=== PATIENT | female | born 1970 | race Caucasian/White ===

== ENCOUNTER 2016-08-25 13:39 | Inpatient (IN) | payer BC ==
[~2016-08-25] VITALS: Ht 167.6 cm; Wt 60.0 kg
[2016-08-25 14:48] LABS: MCHC 34.3 g/dL (31.0-37.0); MCV 90.4 fL (80.0-100.0); MEAN PLATELET VOLUME 9.3 fL (7.4-10.4); PLATELET COUNT 294 10x3/uL (130-400); RBC 3.87 10x6/uL (4.00-5.40); RDW 14.7 % (11.5-14.5); WBC 27.2 10x3/uL (4.8-10.8)
[2016-08-25 14:57] LABS: ALBUMIN 2.8 g/dL (3.4-5.0); ANION GAP 11.6 mmol/L (8-16); BILIRUBIN - TOTAL 0.18 mg/dL (0.2-1.3); CALCIUM 9.3 mg/dL (8.5-10.1); CARBON DIOXIDE 28.8 mmol/L (21.0-32.0); CREATININE - SERUM 1.5 mg/dL (0.6-1.3); POTASSIUM - SERUM 3.4 mmol/L (3.5-5.1); PROTEIN - SERUM 7.8 g/dL (6.4-8.2)
[2016-08-25 15:07] LABS: LYMPHOCYTES 7 % (15-50); NEUTROPHILS 84 % (40-80); PLATELET ESTIMATE INCREASED
[2016-08-25 17:49] LABS: HCG SERUM NEGATIVE (NEGATIVE)
[2016-08-25] MEDS ORDERED: SYNTHROID125 MCG (18:52)
[2016-08-25] MEDS ORDERED: HYDROCODON-ACE1 EAC9 PO (18:52)
[2016-08-25] MEDS ORDERED: PERIDEX480 ML MM (18:53)
[2016-08-25] MEDS ORDERED: CYCLOBENZAPRINE10 MG PO (18:54)
[2016-08-25 18:56] LABS: ERYTHROCYTE SEDIMENTATION RATE 82 mm/hr (0-20)
--- NOTE | 2016-08-25 19:00 | NUR ---
RECEIVED TO ROOM 2203 VIA WC FROM ED. RIGHT ARM IS VERY SWOLLEN WITH SCABBED BLISTERED AREAS NOTED. A/O X3. AT BEDSIDE.
[2016-08-25 20:00] VITALS: BP 107/67
[2016-08-25 20:05] VITALS: BP 107/67; Ht 167.6 cm; Wt 60.0 kg
[2016-08-25] MEDS ORDERED: LEVAQUIN500 MG PO (20:27)
--- NOTE | 2016-08-25 21:06 | NUR ---
ASSESSMENT AND HX DONE AT BEGINNING OF THE SHIFP. PT WAS GIVEN PRE OPS AND ALOS RECEIVED TORADOL JUST BEFOR LEAVING FOR SURGERY AT THIS TIME. FAMILY AT THE BEDSIDE.
--- NOTE | 2016-08-25 22:49 | NUR ---
RETURNED FROM SURGERY AND IS RESTING COMFORTABLE
[2016-08-26 04:00] VITALS: BP 95/50
[2016-08-26 05:18] LABS: BASOPHILS 0.1 % (0-2); EOSINOPHILS 0.1 % (0-7); HEMATOCRIT 32.9 % (36.0-48.0); IMMATURE GRANULOCYTES 1.3 % (0-5); LYMPHOCYTES 3.6 % (15-50); MCH 30.6 pg (26.0-34.0); MCHC 33.4 g/dL (31.0-37.0); MCV 91.4 fL (80.0-100.0); MEAN PLATELET VOLUME 9.7 fL (7.4-10.4); MONOCYTES 4.5 % (2-11); NEUTROPHILS 90.4 % (40-80); RDW 14.9 % (11.5-14.5)
[2016-08-26 05:24] LABS: PLATELET COUNT 233 10x3/uL (130-400); WBC 15.8 10x3/uL (4.8-10.8)
[2016-08-26 05:53] LABS: ALBUMIN 2.4 g/dL (3.4-5.0); BILIRUBIN - TOTAL 0.25 mg/dL (0.2-1.3); CALCIUM 7.9 mg/dL (8.5-10.1); CARBON DIOXIDE 24.4 mmol/L (21.0-32.0)
[2016-08-26 06:00] LABS: ANION GAP 14.8 mmol/L (8-16); POTASSIUM - SERUM 4.2 mmol/L (3.5-5.1)
--- NOTE | 2016-08-26 07:30 | NUR ---
AWAKE AND ALERT. ORIENTED X3. NO C/O AT THIS TIME. LUNGS ARE CLEAR BILATERALLY, NO COUGH NOTED. INSTRUCTED IN USE OF IS AGAIN. SKIN IS INTACT WITHOUT REDNESS EXCEPT TO RIGHT ARM WHICH IS SWOLLEN WITH MULTIPLE AREAS OF SCABS AND BLISTER LIKE WOUNDS. THESE ARE NOT NEW. IV TO LEFT AC IS PATENT WITHOUT REDNESS AT INSERTION SITE. REPORTS GOOD PAIN MANAGEMENT WITH USE OF LEAD MASSAGE THERAPIST.
[2016-08-26 08:05] VITALS: BP 110/55
--- NOTE | 2016-08-26 11:30 | NUR ---
RESTING QUIETLY IN BED. DENIES NEEDS.
--- NOTE | 2016-08-26 11:39 | OP ---
PATIENT NAME: JENNIFER PERERA MEDICAL RECORD: [id number] :68 LOCATION:D.MS [id number] ADMISSION DATE:08/25/16 SURGEON: AMAIRANI JOHNSON MD DATE OF OPERATION: 08/25/2016 PREOPERATIVE DIAGNOSIS: Septic arthritis of the right elbow. POSTOPERATIVE DIAGNOSES: Septic arthritis of the right elbow plus septic bursitis. PROCEDURE: Excisional debridement and lavage of the right elbow joint skin, subcutaneous tissue, portions of fat, fascia, muscle and bone. SURGEON: Amairani Johnson MD ANESTHESIA: General. INTRAOPERATIVE COMPLICATIONS: None. SUMMARY OF PATHOLOGIC FINDINGS: The patient had celina purulence tracking up the triceps fascia and down the forearm fascia. The patient also had celina purulence in the elbow joint itself. OPERATIVE SUMMARY IN DETAIL: After obtaining the appropriate preoperative orthopedic surgery consents as well as anesthetic consultation, evaluation and clearance, the patient was brought to the operating room and placed on operating table in supine position. After general laryngeal mask was administered, the right upper extremity was prepped and draped in a routine sterile fashion. Incision was made into the lateral side of the bursa at which celina purulence was noted. Cultures were taken and this was irrigated copiously. The elbow joint was opened up and again more purulence was noted. Curettage and sharp scalpel debridement was followed by copious bulb syringe irrigation. At this point, the wound was packed open with Betadine-soaked Kerlix roll, sterile dressings were applied. The patient was awakened, taken to recovery in stable condition. All final needle and sponge counts were correct. TRANSINT:[id number] Voice Confirmation ID: [id number] DOCUMENT ID: [id number] AMAIRANI JOHNSON MD at 1139 CC: [id number] DICTATION DATE: 08/25/16 2219 RADIAL ROUTER OPERATOR: 08/26/16 0357 ADM IN [id number] [place] [address]
[2016-08-26 11:51] VITALS: BP 110/62
[2016-08-26 15:48] VITALS: BP 113/64
[2016-08-26 20:00] VITALS: BP 111/66
[2016-08-27] VITALS: BP 118/71
[2016-08-27 04:00] VITALS: BP 111/63
--- NOTE | 2016-08-27 08:42 | NUR ---
PATIENT RESTING IN HER BED. AWAKE, ALERT, AND ORIENTED X4. SCHEDULED LOVENOX GIVEN TO PATIENT. PATIENT TOLERATED WELL. CLIENT SUPPORT CONSULTANT DILAUDID IN USE FOR PAIN CONTROL. PATIENT DENIES ANY NEEDS. CALL LIGHT IN PATIENT'S REACH. WILL MONITOR.
[2016-08-27 09:57] VITALS: BP 127/84
[2016-08-27 11:56] VITALS: BP 132/679
--- NOTE | 2016-08-27 15:14 | NUR ---
PATIENT SITTING UP IN BED. PATIENT COMPLAINS OF PAIN IN HER RIGHT ELBOW/ARM AREA. PATIENT RATES HER PAIN LEVEL A "7" ON A 0-10 SCALE. NEW SYRINGE OF SOCIAL SERVICES DIRECTOR DILAUDID INITIATED. PATIENT DENIES ANY FURTHER NEEDS. CALL LIGHT IN PATIENT'S REACH. WILL MONITOR.
[2016-08-27 16:32] VITALS: BP 129/78
--- NOTE | 2016-08-27 19:40 | NUR ---
PT. IN BED WITH HOB UP FOR COMFORT. RUE ELEVATED UP ON PILLOW AND ICE PACK ALSO ON RUE. ASSESSMENT COMPLETED. LT. FA I.V. INFUSING VIA PUMP WITHOUT ANY ALARMS. CALL LIGHT WITHIN REACH.
[2016-08-27 20:00] VITALS: BP 130/81
--- NOTE | 2016-08-27 23:06 | NUR ---
PT. IN BED WITH HOB UP FOR COMFORT WATCHING TV. NO VOICED NEEDS AT THIS TIME AND SHE HAS HER CALL LIGHT WITHIN REACH. IV INFUSING VIA PUMP WITHOUT ANY PROBLEMS AND PT. USES HER PRODUCTION GRIP NEEDED.
--- NOTE | 2016-08-28 03:08 | NUR ---
PT. IN BED WITH HOB UP FOR COMFORT WITH EYES CLOSED AND RESP. DEEP AND EVEN. IV INFUSING WITHOUT ALARMS AND PT. HAS HER CALL LIGHT WITHIN REACH.
[2016-08-28 04:00] VITALS: BP 118/76
[2016-08-28 04:59] LABS: BASOPHILS 0.1 % (0-2); EOSINOPHILS 1.6 % (0-7); HEMATOCRIT 28.7 % (36.0-48.0); HEMOGLOBIN 9.8 g/dL (12-16); IMMATURE GRANULOCYTES 1.4 % (0-5); LYMPHOCYTES 7.5 % (15-50); MCH 30.1 pg (26.0-34.0); MCHC 34.1 g/dL (31.0-37.0); MEAN PLATELET VOLUME 9.1 fL (7.4-10.4); MONOCYTES 11.7 % (2-11); NEUTROPHILS 77.7 % (40-80); PLATELET COUNT 277 10x3/uL (130-400); RBC 3.26 10x6/uL (4.00-5.40); RDW 14.3 % (11.5-14.5); WBC 11.8 10x3/uL (4.8-10.8)
[2016-08-28 05:03] LABS: ANION GAP 8.9 mmol/L (8-16); CALCIUM 7.7 mg/dL (8.5-10.1); CARBON DIOXIDE 25.9 mmol/L (21.0-32.0); POTASSIUM - SERUM 3.8 mmol/L (3.5-5.1)
[2016-08-28 07:00] VITALS: BP 126/83
--- NOTE | 2016-08-28 07:18 | NUR ---
PATIENT IS RESTING IN HER BED. PATIENT IS AWAKE, ALERT, AND ORIENTED X4. SUPERVISOR TURKEY FARM DILAUDID IN USE AT HER BEDSIDE. PATIENT DENIES ANY NEEDS AT PRESENT TIME. CALL LIGHT IN PATIENT'S REACH. WILL MONITOR PATIENT.
--- NOTE | 2016-08-28 07:52 | NUR ---
PATIENT IS RESTING IN HER BED AND WATCHING T.V. PATIENT IS AWAKE, ALERT, AND ORIENTED X4. SCHOOL HEALTH ASSISTANT DILAUDID IN USE AT THE BEDSIDE FOR PAIN CONTROL. ASSESSMENT COMPLETED. SEE FLOWSHEET FOR ANY DETAILS. IV SITE PATENT WITHOUT ANY S/S OF INFECTION IN PATIENT'S LEFT FOREARM. PATIENT DENIES ANY NEEDS AT PRESENT TIME. CALL LIGHT IN PATIENT'S REACH. WILL MONITOR PATIENT.
--- NOTE | 2016-08-28 11:07 | NUR ---
PATIENT RESTING IN BED. SCHEDULED FLORAJEN GIVEN TO PATIENT. PATIENT VISITING WITH FAMILY. DENIES NEEDS AT PRESENT TIME. WILL MONITOR. CALL LIGHT IN PATIENT'S REACH.
[2016-08-28 12:32] VITALS: BP 131/89
[2016-08-28 14:57] VITALS: BP 133/84
--- NOTE | 2016-08-28 19:35 | NUR ---
RECIEVED SHIFT REPORT. PT IS LYING IN BED. ALERT AND ORIENTED AND ABLE TO VERBALIZE NEEDS. IV IS PATENT AND FLUIDS ARE RUNNING PER ORDER. PT IS AMBULATORY BUT WAS INSTRUCTED TO CALL FOR ANY ASSISTANCE NEEDED. DRESSING TO RIGHT ELBOW C/D/I. PT STATES PAIN IS 6/10 WITH ASSISTANT BOILER OPERATOR PUMP. SCD'S OFF AT THIS TIME. NO NEEDS ARE VERBALIZED AT THIS TIME. WILL CONTINUE TO MONITOR. SIDE RAILS ARE UP X 2. BED IS IN LOWEST POSITION. CALL LIGHT IS WITHIN REACH.
[2016-08-28 20:00] VITALS: BP 120/72
--- NOTE | 2016-08-28 20:14 | NUR ---
SHIFT ASSESSMENT COMPLETED. NIGHT MEDS GIVEN WITH NO PROBLEMS. PT C/O NAUSEA. ADMINISTERED PRESCRIBED PRN ZOFRAN PER ORDER. DENIES FURTHER NEEDS. WILL MONITOR. SIDE RAILS X 2. BED LOW. CALL LIGHT IN REACH.
[2016-08-29] VITALS: BP 106/65
[2016-08-29 06:18] LABS: BASOPHILS 0.1 % (0-2); EOSINOPHILS 0.9 % (0-7); HEMATOCRIT 32.1 % (36.0-48.0); HEMOGLOBIN 11.1 g/dL (12-16); IMMATURE GRANULOCYTES 3.4 % (0-5); LYMPHOCYTES 9.1 % (15-50); MCH 29.6 pg (26.0-34.0); MCHC 34.6 g/dL (31.0-37.0); MEAN PLATELET VOLUME 9.4 fL (7.4-10.4); MONOCYTES 11.2 % (2-11); NEUTROPHILS 75.3 % (40-80); RBC 3.75 10x6/uL (4.00-5.40); RDW 14.2 % (11.5-14.5)
[2016-08-29 06:25] LABS: MCV 85.6 fL (80.0-100.0); PLATELET COUNT 346 10x3/uL (130-400)
[2016-08-29 06:47] LABS: ANION GAP 10.8 mmol/L (8-16); CALCIUM 7.9 mg/dL (8.5-10.1); POTASSIUM - SERUM 3.8 mmol/L (3.5-5.1)
--- NOTE | 2016-08-29 07:35 | NUR ---
ADMINISTERED 30MG OF TORADOL FOR PAIN LEVEL OF 6/10. PT IN BED, DENIES ANY NEEDS AT THIS TIME. CALL LIGHT IN REACH, NAD NOTED, WILL CONTINUE TO MONITOR.
--- NOTE | 2016-08-29 08:20 | NUR ---
TALKED TO JENNIFER JOHNSON'S WATER TREATMENT PLANT OPERATOR, AND ASKED HER IF THEY WANTED ME TO HOLD LOVENOX FOR THIS AM. STATED TO GO AHEAD AND HOLD IT.
[2016-08-29 08:23] VITALS: BP 127/92
[2016-08-29 13:35] VITALS: BP 123/79
[2016-08-29 16:17] VITALS: BP 120/80
--- NOTE | 2016-08-29 17:19 | NUR ---
Patient Name: JENNIFER PERERA Admission Status: ER Accout number: [id number] Admission Date: 08-25-2016 : 1970 Admission Diagnosis: Attending: MADELEINE Current LOS: 4 Anticipated DC Date: 09-01-2016 Planned Disposition: Home with Home Health Primary Insurance: [employer] OUT OF STATE Discharge Planning Comments: CM SPOKE WITH PATIENT, SPOUSE (REJI), AND FATHER (ESSENCE) REGARDING D/C NEEDS AND PLANS. PATIENT STATED FAMILY WILL DRIVE HER HOME AT DISCHARGE AND THERE ARE 10 STEPS W/RAILS TO ENTER HOME AND NO STAIRS INSIDE HOME. PATIENT IS INDEPENDENT WITH HER CARE AND HAS NO DME AT HOME. PATIENT HAS NO PCP AND USES [facility] ON [address]. PATIENT SIGNED THE [facility] WITH [facility] IF NEEDED. CM WILL CONTINUE TO FOLLOW PATIENT WITH D/C NEEDS AND PLANS. PCP NONE [facility] [address]- [phone] REJI (SPOUSE) [phone] ESSENCE (DAD) [phone] Sack Maker: Ngozi Augustin Is the patient Alert and Oriented? Yes 0 * How many steps to enter\exit or inside your home? 10 W/RAILS 0 * PCP NONE (DR ELIZABETH GARRISON) 0 * Pharmacy [facility] ([address]) 0 * Preadmission Environment Home with Family 0 * ADLs Independent 0 * Equipment None 0 * List name and contact numbers for known caregivers / representatives who currently or will assist patient after discharge: REJI (SPOUSE) [phone] ESSENCE JONES (DAD) [phone] 0 * Community resources currently utilized None 0 * Additional services required to return to the preadmission environment? Yes 0 * Can the patient safely return to the preadmission environment? Yes 0 * Has this patient been hospitalized within the prior 30 days at any hospital? No 0 Grand Total: 0
--- NOTE | 2016-08-29 17:27 | NUR ---
PT PRE-OP ORDER. PT DENIES ANY NEEDS AT THIS TIME. CALL LIGHT IN REACH, NAD NOTED, WILL CONTINUE TO MONITOR. [facility]
--- NOTE | 2016-08-29 19:25 | NUR ---
RECIEVED SHIFT REPORT. PT IS LYING IN BED. ALERT AND ORIENTED AND ABLE TO VERBALIZE NEEDS. IV IS PATENT AND FLUIDS ARE RUNNING PER ORDER. PT IS AMBULATORY BUT WAS INSTRUCTED TO CALL FOR ANY ASSISTANCE NEEDED. DRESSING TO RIGHT ELBOW C/D/I. PT STATES PAIN IS 4/10 WITH SPED TEACHER PUMP. NO NEEDS ARE VERBALIZED AT THIS TIME. FAMILY IS AT THE BEDSIDE. SIDE RAILS ARE UP X 2. BED IS IN LOWEST POSITION. CALL LIGHT IS WITHIN REACH.
[2016-08-29 20:00] VITALS: BP 117/80
--- NOTE | 2016-08-29 21:10 | NUR ---
SHIFT ASSESSMENT COMPLETED. NIGHT MEDS NOT GIVEN DUE TO PT BEING NPO IN PREPERATION OF SURGERY. NO NEEDS ARE VOICED. WILL MONITOR. FAMILY AT BEDSIDE. SIDE RAILS X 2. BED LOW. CALL LIGHT IN REACH.
[2016-08-29 23:23] VITALS: BP 129/80
[2016-08-30 06:02] LABS: BASOPHILS 0.2 % (0-2); EOSINOPHILS 1.3 % (0-7); HEMATOCRIT 29.8 % (36.0-48.0); HEMOGLOBIN 10.2 g/dL (12-16); IMMATURE GRANULOCYTES 5.2 % (0-5); LYMPHOCYTES 12.1 % (15-50); MCH 30.1 pg (26.0-34.0); MCHC 34.2 g/dL (31.0-37.0); MEAN PLATELET VOLUME 9.2 fL (7.4-10.4); MONOCYTES 14.6 % (2-11); NEUTROPHILS 66.6 % (40-80); RBC 3.39 10x6/uL (4.00-5.40); RDW 14.4 % (11.5-14.5); WBC 9.9 10x3/uL (4.8-10.8)
[2016-08-30 06:09] LABS: MCV 87.9 fL (80.0-100.0); PLATELET COUNT 422 10x3/uL (130-400)
[2016-08-30 06:14] LABS: ANION GAP 10.7 mmol/L (8-16); CALCIUM 7.3 mg/dL (8.5-10.1); CARBON DIOXIDE 25.8 mmol/L (21.0-32.0); CREATININE - SERUM 1.1 mg/dL (0.6-1.3); POTASSIUM - SERUM 3.5 mmol/L (3.5-5.1)
--- NOTE | 2016-08-30 07:27 | NUR ---
AWAKE AND ALERT AT THIS TIME. PROVIDER RELATIONS SPECIALIST IN USE FOR PAIN CONTROL. DENIES NEEDS AT THIS TIME. WOUND VAC PATENT AND PRESENT TO RIGHT ELBOW. IV PATENT WITH NO S/S OF INFILTRATION. CALL LIGHT IN REACH. SRX2 WITH BED LOCKED AND IN LOWEST POSITION. WILL CONTINUE WITH PLAN OF CARE.
--- NOTE | 2016-08-30 07:59 | NUR ---
SCHEDULED MEDICATION ADMINSITERED AT THIS TIME. ASSESSMENT PERFORMED PER FLOWSHEET. PT DENIES NEEDS AT THIS TIME. CALL LIGHT IN REACH, WILL CONTINUE WITH PLAN OF CARE.
[2016-08-30 08:04] VITALS: BP 113/77
--- NOTE | 2016-08-30 11:26 | NUR ---
IV TO LEFT FOREARM TENDER TO TOUCH. SITE SALINE LOCKED AND SPOKE WITH BRIT MIDDLETON WITH VASCULAR ACCESS TO SEE IF SHE COULD GO AHEAD AND DO THE MIDLINE SHE WAS ALREADY CONSULTED.
[2016-08-30 11:33] VITALS: BP 135/87
[2016-08-30 16:20] VITALS: BP 132/82
--- NOTE | 2016-08-30 19:25 | NUR ---
RECIEVED SHIFT REPORT. PT IS LYING IN BED. ALERT AND ORIENTED AND ABLE TO VERBALIZE NEEDS. IV IS PATENT AND FLUIDS ARE RUNNING PER ORDER. PT IS AMBULATORY BUT WAS INSTRUCTED TO CALL FOR ANY ASSISTANCE NEEDED. PT STATES PAIN IS 5/10 WITH MANAGER MONITORING PUMP. WOUND VAC NOTED TO RIGHT ELBOW INTACT WITH SITE C/D/. PT DOES NOT WANT SCD'S AT THIS TIME. NO NEEDS ARE VERBALIZED AT THIS TIME. WILL CONTINUE TO MONITOR. SIDE RAILS ARE UP X 2. BED IS IN LOWEST POSITION. CALL LIGHT IS WITHIN REACH.
--- NOTE | 2016-08-30 20:16 | NUR ---
SHIFT ASSESSMENT COMPLETED. NIGHT MEDS GIVEN WITH NO PROBLEMS. PT DOES NOT WANT TO TAKE SCHEDULED MIRALAX AT THIS TIME STATING THAT WHEN SHE TOOK IT EARLIER "I HAD 2 BOWEL MOVEMENTS BACK TO BACK." NO NEEDS ARE VOICED. WILL MONITOR. SIDE RAILS X 2. BED LOW. CALL LIGHT IN REACH.
[2016-08-31 05:36] LABS: BASOPHILS 0.3 % (0-2); EOSINOPHILS 1.5 % (0-7); HEMATOCRIT 29.9 % (36.0-48.0); HEMOGLOBIN 10.2 g/dL (12-16); IMMATURE GRANULOCYTES 9.2 % (0-5); LYMPHOCYTES 11.7 % (15-50); MCH 29.9 pg (26.0-34.0); MCHC 34.1 g/dL (31.0-37.0); MCV 87.7 fL (80.0-100.0); MEAN PLATELET VOLUME 8.7 fL (7.4-10.4); MONOCYTES 12.9 % (2-11); NEUTROPHILS 64.4 % (40-80); RBC 3.41 10x6/uL (4.00-5.40); RDW 14.5 % (11.5-14.5); WBC 9.5 10x3/uL (4.8-10.8)
[2016-08-31 05:51] LABS: PLATELET COUNT 588 10x3/uL (130-400)
[2016-08-31 06:11] LABS: ANION GAP 12.3 mmol/L (8-16); C-REACTIVE PROTEIN 7.4 mg/dL (0.0-0.9); CALCIUM 7.7 mg/dL (8.5-10.1); CARBON DIOXIDE 24.6 mmol/L (21.0-32.0); POTASSIUM - SERUM 4.9 mmol/L (3.5-5.1); THYROID STIMULATING HORMONE 21.65 uIU/mL (0.36-3.74)
[2016-08-31 07:25] LABS: ERYTHROCYTE SEDIMENTATION RATE 70 mm/hr (0-20)
[2016-08-31 08:16] VITALS: BP 121/70
--- NOTE | 2016-08-31 08:32 | NUR ---
SCHEDULED MEDICATIONS ADMINISTERED AT THIS TIME WITHOUT DIFFICULTY. ASSESSMENT PERFORMED PER FLOWSHEET. CALL LIGHT IN REACH. WOUND VAC TO RIGHT ELBOW INTACT AT THIS TIME. PORT TRAFFIC MANAGER IN USE FOR PAIN CONTROL. AMBULATES AND SELF POSITIONS FOR COMFORT. WILL CONTINUE WITH PLAN OF CARE.
--- NOTE | 2016-08-31 10:35 | NUR ---
BOLUS DOSE OF DILAUDID ADMINISTERED PER ORDER FOR PAIN 10/10 RELATED TO WOUND VAC DRESSING CHANGE. DENIES FURTHER NEEDS AT THIS TIME. CALL LIGHT IN REACH, WILL CONTINUE WITH PLAN OF CARE.
--- NOTE | 2016-08-31 11:06 | NUR ---
WOUND CARE : WOUND VAC DRESSING CHANGE WOUND TYPE: SURGICAL WOUND LOCATION:RIGHT ELBOW WOUND AGE IN MONTHS: DAYS DEBRIDEMENT ATTEMPTED IN LAST 10 DAYS? DATE/TYPE: YES/SURGICAL SERIAL DEBRIDEMENTS REQUIRED? UNKNOWN MEASUREMENT DATE: 08/31/16 8.5CM X 3CM X 0.7CM X 2.2CM @ 12 OCLOCK FULL THICKNESS? YES MUSCLE, TENDON OR BONE EXPOSED? NO UNDERMINING? NO TUNNELING/SINUS? YES @ 12 OCLOCK APPEARANCE OF WOUND BED : RED/BEEFY EXUDATE (AMOUNT, COLOR, ODOR): SMALL/BLOODY/NO ODOR FOAM TYPE: BLACK # OF PIECES USED: 1 PIECE -125MMHG MOD CONTINUOUS EDUCATION:SCHEDULE OF VAC DRESSING CHANGES M-W-F PT TOLERATED WELL.
[2016-08-31 12:22] VITALS: BP 125/82
--- NOTE | 2016-08-31 12:39 | NUR ---
CM REASSESSMENT NOTE: PATIENT IS DISCHARGING HOME TODAY-FAMILY DRIVING HER. PATIENT HAS A WOUND VAC, AND IV ABX THERAPY. PATIENT HAD CHOSEN [facility] BUT THEY DID NOT ACCEPT HER INSURANCE AND REFERRAL WAS THEN SENT TO [facility]. PATIENTS IV ABX IS COMING FROM [facility]. [facility] AND [place] [facility] NUMBER. FAMILY WILL BE WITH PATIENT FOR INSTRUCTIONS ON ABX. CM WILL CONTINUE TO FOLLOW PATIENT WITH D/C NEEDS AND PLANS. [facility]- [phone] [facility]- [phone]
--- NOTE | 2016-08-31 13:05 | NUR ---
OFFERED PT NICOTINE PATCH PER ORDER AND PT POLITELY REFUSED AT THIS TIME. DENIES FURTHER NEEDS. WILL CONTINUE WITH PLAN OF CARE.
--- NOTE | 2016-08-31 13:26 | NUR ---
CM REASSESSMENT NOTE: PATIENT IS NOT DISCHARGING TODAY/SHOULD BE TOMORROW. [facility] SCALES HAS BEEN NOTIFIED. CM WILL CONTINUE TO FOLLOW PATIENT WITH D/C NEEDS AND PLANS.
--- NOTE | 2016-08-31 13:35 | NUR ---
PICC LINE DRESSING CHANGED TO LEFT UPPER ARM. CLEANED AND NEW BIOPATCH APPLIED WITH OCCLUSIVE DRESSING APPLIED.
[2016-08-31 16:31] VITALS: BP 127/74
--- NOTE | 2016-08-31 19:00 | NUR ---
BEDSIDE REPORT RECEIVED AND CARE OF PT ASSUMED. PT LYING IN HIGH RYDER'S POSITION WATCHING TV. LEFT UPPER MIDLINE IV PATENT WITH NS INFUSING AT 75 ML / HR. DILAUDID COLOR DRUM WORKER IN USE FOR PAIN CONTROL. WOUND VAC ON RIGHT ELBOW PATENT WITHOUT LEAKAGE ALARMS. WILL MONITOR K[place]LEY FOR NEEDS.
[2016-08-31 20:00] VITALS: BP 122/74
--- NOTE | 2016-08-31 20:29 | NUR ---
HS MEDICATIONS GIVEN. WILL CONTINUE TO MONITOR FOR NEEDS.
--- NOTE | 2016-08-31 20:35 | NUR ---
GAVE HS SNACK OF X2 ICE CREAMS. WILL CONTINUE TO MONITOR FOR NEEDS. CALL LIGHT WITHIN REACH.
[2016-09-01] VITALS: BP 120/77
[2016-09-01 04:00] VITALS: BP 130/71
--- NOTE | 2016-09-01 08:42 | NUR ---
SCHEDULED MEDICATIONS ADMINISTERED AT THIS TIME WITHOUT DIFFICULTY. WOUND VAC TO RIGHT ELBOW PRESENT WITH DRESSING C/D/I. AT BEDSIDE. ASSESSMENT PERFORMED PER FLOWSHEET. C/O WATER RETENTION, WILL SPEAK WITH NEPHROLOGY. DENIES FURTHER NEEDS, CALL LIGHT IN REACH. WILL CONTINUE WITH PLAN OF CARE.
[2016-09-01 08:44] VITALS: BP 127/78
[2016-09-01] MEDS ORDERED: DILAUDID4 MG PO (08:46)
[2016-09-01] MEDS ORDERED: [UNRECOGNIZED DRUG - CODE] IV (08:49)
[2016-09-01 09:42] LABS: ANION GAP 11.1 mmol/L (8-16); CALCIUM 8.1 mg/dL (8.5-10.1); CARBON DIOXIDE 26.6 mmol/L (21.0-32.0); CREATININE - SERUM 1.1 mg/dL (0.6-1.3); POTASSIUM - SERUM 4.7 mmol/L (3.5-5.1)
--- NOTE | 2016-09-01 11:30 | NUR ---
SCHEDULED MEDICATIONS ADMINISTERED AND PRN DILAUDID ADMINISTERED PER ORDER FOR PAIN. SOLAR SALES REP D/C, WELL IV FLUIDS. CALL LIGHT IN REACH. WILL CONTINUE WITH PLAN OF CARE.
[2016-09-01 12:24] VITALS: BP 146/77
--- NOTE | 2016-09-01 14:04 | NUR ---
PRN DILAUDID ADMINISTERED PER ORDER FOR PAIN. DENIES FURTHER NEEDS. AWAITING DISCHARGE PAPERWORK.
--- NOTE | 2016-09-01 14:05 | NUR ---
CM REC. CALL FROM PATIENTS SISTER STATING IT WAS UNACCEPTABLE FOR PATIENT TO HAVE TO PAY OUT OF POCKET UNTIL HER DEDUCTABLE WAS MET FOR HER HOME HEALTH. CM EXPLAINED SHE IS CONSIDERED SELF PAY UNTIL DEDUCTABLE IS MET AND A PAYMENT IS REQUIRED FROM HOME HEALTH. SISTER ASKED IF I WOULD CALL [employer] [facility] AND SEE IF THEY WOULD TAKE HER WITHOUT HER DEDUCTABLE BEING MET. CM CALLED [employer] (MICHAEL) AND THEY STATED THEY COULD NOT TAKE ANY SELF PAY OUTSIDE OF [facility]. CM ALSO CALLED [employer] (JELANI) -PER FATHERS REQUEST -(TO CHECK THEIR POLICY) AND THEY STATED THE SAME THING ABOUT HAVING TO BE PAID AT VISIT AND THEN PAYMENTS UNTIL DEDUCTABLE IS MET. CM SPOKE WITH PATIENT, SPOUSE, AND FATHER AND THEY STATED THEY CHOSE TO GO WITH [facility] AND [facility]. FAMILY STATED THEY WHERE SORRY FOR THE CONFUSION AND CM STATED THAT WAS FINE. CM STATED TO PLEASE TELL THE SISTER THAT CM TRIED AND FAMILY STATED DON'T WORRY ABOUT IT- IT IS WHAT IT IS. PATIENT CALLED [facility] AND STATED THAT THE FAMILY DECIDED TO GO WITH THEM AND [facility] [place]. CM STATED [facility] [place] AND [facility] WILL MEET WITH HER IN HER HOME THIS AFTERNOON FOR IV ABX SET UP AND TEACHING TO FAMILY.
--- NOTE | 2016-09-01 14:09 | NUR ---
CM REC. CALL FROM PATIENTS SISTER STATING IT WAS UNACCEPTABLE FOR PATIENT TO HAVE TO PAY OUT OF POCKET UNTIL HER DEDUCTABLE WAS MET FOR HER HOME HEALTH. CM EXPLAINED SHE IS CONSIDERED SELF PAY UNTIL DEDUCTABLE IS MET AND A PAYMENT IS REQUIRED FROM HOME HEALTH. SISTER ASKED IF I WOULD CALL [employer] [facility] AND SEE IF THEY WOULD TAKE HER WITHOUT HER DEDUCTABLE BEING MET. CM CALLED [facility] (MICHAEL) AND THEY STATED THEY COULD NOT TAKE ANY SELF PAY OUTSIDE OF [facility]. CM ALSO CALLED [employer] (JELANI) -PER FATHERS REQUEST -(TO CHECK THEIR POLICY) AND THEY STATED THE SAME THING ABOUT HAVING TO BE PAID AT VISIT AND THEN PAYMENTS UNTIL DEDUCTABLE IS MET. CM SPOKE WITH PATIENT, SPOUSE, AND FATHER AND THEY STATED THEY CHOSE TO GO WITH [facility] AND [facility]. FAMILY STATED THEY WHERE SORRY FOR THE CONFUSION AND CM STATED THAT WAS FINE. CM STATED TO PLEASE TELL THE SISTER THAT CM TRIED AND FAMILY STATED DON'T WORRY ABOUT IT- IT IS WHAT IT IS. PATIENT CALLED [facility] AND STATED THAT THE FAMILY DECIDED TO GO WITH THEM AND [employer]. CM STATED [facility] WILL DELIVER ABX TO HOME AND [facility] WILL MEET WITH HER IN HER HOME THIS AFTERNOON FOR IV ABX SET UP AND TEACHING TO FAMILY.
--- NOTE | 2016-09-01 15:55 | NUR ---
DISCHARGE PAPERWORK REVIEWED WITH PT AND PT DENIES QUESTIONS OR CONCERNS. CONNECTED TO HOME VAC AND HOSPITAL VAC PLACED IN SOILED UTILITY ROOM. NOTIFIED BRIT HUGGINS WITH WOUND CARE.
[2016-09-01 18:10] LABS: AEROBE ID Final report (())
--- NOTE | 2016-09-05 13:19 | EC ---
PATIENT:JENNIFER PERERA DATE OF SERVICE: 08/25/16 SEX: F MEDICAL RECORD: [id number] DATE OF : [birth year] LOCATION:[facility] AGE OF PATIENT: 46 ADMISSION DATE: 08/25/16 REFERRING PHYSICIAN: INTERPRETING PHYSICIAN: DHIRAJ FULLER MD ECHOCARDIOGRAM REPORT ECHO CHARGES 4 ECHO COMPLETE CLINICAL DIAGNOSIS: MURMUR/FEVER/STREPTOCOCCUS ECHOCARDIOGRAPHIC MEASUREMENTS (adult normal given) AC root (d.<3.7cm) 3.2 LV Septum d (<1.2 cm> 1.4 Valve Excursion 2.0 LV Septum (systole) 2.0 Left Atria (s.<4.0cm> 3.8 LVPW d(<1.2cm) 1.5 RV (d.<2.3cm) 2.5 LVPW (sytole) 2.0 LV diastole(<5.6CM) 4.2 MV E-F(>70mm/sec) LV systole 1.9 LVOT Diameter 1.8 MV exc.(>10mm) Est.ejection fraction (50-75%) Pericardial Effusion N DOPPLER: LVIT A 85.0 E 70.0 LA RVSP 32.0 LVOT 121 AOP1/2T Asc. Ao 162 RVOT 91.0 RA PA 125 AV Gradient Peak 10.5 AV Mean 5.2 AV Area 1.8 MV Gradient Peak 5.4 MV Mean 2.1 MV Area COMMENTS: Wheelage Clerk: Jace HAIRSTONOE Engineering Technology Instructor:Jordi Muir TAPE# PACS DATE OF SERVICE: 08/29/2016 Adequate 2D echo, color flow and spectral Doppler and M-mode. LVH present. LV internal dimensions are normal. Wall motion normal. EF is greater than or equal to 55%. Aortic valve is tricuspid. No evidence of stenosis by Doppler interrogation. The left atrium is normal. Mitral valve shows no prolapse. Trace MR. Right-sided chamber is grossly normal. Trace TR. No evidence of vegetation in all 4 cardiac valves. ECHOCARDIOGRAM REPORT [id number] JENNIFER PERERA TRANSINT:[id number] Voice Confirmation ID: [id number] DOCUMENT ID: [id number] 09/02/2016 Edited to correct date of service, [email or web address]. DHIRAJ FULLER MD at 1319 CC: [id number] DICTATION DATE: 08/29/16 1223 DISPLAY MECHANIC: 08/29/16 1356 DIS IN 09/01/16 [facility] [address] [place] [address]
== END 2016-09-01 16:10 | disposition home health service (06) | DRG 511 ==
LOC: D.ER 13:39 → D.MS 17:52
PROVIDERS: Emergency Medicine; Student in an Organized Health Care Education/Training Program; ADMIT Orthopaedic Surgery
PROC: 0PBK0ZZ Excision of Right Ulna, Open Approach (ICD-10-PCS; principal; 2016-08-25 20:00)
PROC: 0PBK0ZZ Excision of Right Ulna, Open Approach (ICD-10-PCS; 2016-08-29 14:00)
DX: M00.221 Other streptococcal arthritis, right elbow (principal); L03.113 Cellulitis of right upper limb; E87.1 Hypo-osmolality and hyponatremia; L40.50 Arthropathic psoriasis, unspecified; G89.29 Other chronic pain; E03.9 Hypothyroidism, unspecified; M54.30 Sciatica, unspecified side; R01.1 Cardiac murmur, unspecified; B95.0 Streptococcus, group A, as the cause of diseases classified elsewhere; L40.9 Psoriasis, unspecified

== ENCOUNTER → 2016-09-06 13:42 | Outpatient (CLI) | payer BC ==
[2016-08-25 20:05] VITALS: BMI 21.3
[~2016-09-06 13:42] MED LIST: CYCLOBENZAPRINE10 MG PO; DILAUDID4 MG PO; HYDROCODON-ACE1 EAC9 PO; LEVAQUIN500 MG PO; PERIDEX480 ML MM; SYNTHROID125 MCG; [UNRECOGNIZED DRUG - CODE] IV
[2016-09-06 15:19] LABS: BASOPHILS 0.7 % (0-2); EOSINOPHILS 2.2 % (0-7); HEMATOCRIT 28.9 % (36.0-48.0); HEMOGLOBIN 9.4 g/dL (12-16); IMMATURE GRANULOCYTES 0.9 % (0-5); LYMPHOCYTES 17.7 % (15-50); MCH 29.7 pg (26.0-34.0); MCHC 32.5 g/dL (31.0-37.0); MCV 91.2 fL (80.0-100.0); MEAN PLATELET VOLUME 8.1 fL (7.4-10.4); MONOCYTES 12.9 % (2-11); NEUTROPHILS 65.6 % (40-80); RBC 3.17 10x6/uL (4.00-5.40); RDW 15.2 % (11.5-14.5); WBC 6.8 10x3/uL (4.8-10.8)
[2016-09-06 15:36] LABS: C-REACTIVE PROTEIN 3.8 mg/dL (0.0-0.9); CREATININE - SERUM 1.2 mg/dL (0.6-1.3)
[2016-09-06 15:53] LABS: PLATELET COUNT 780 10x3/uL (130-400)
[2016-09-06 16:27] LABS: ERYTHROCYTE SEDIMENTATION RATE 69 mm/hr (0-20)
== END | disposition home or self-care (01) ==
LOC: D.LABREF 13:42
PROVIDERS: Orthopaedic Surgery
DX: M86.9 Osteomyelitis, unspecified (principal)

== ENCOUNTER → 2016-09-12 12:36 | Outpatient (CLI) | payer BC ==
[2016-08-25 20:05] VITALS: BMI 21.3
[2016-09-12 14:12] LABS: BASOPHILS 0.9 % (0-2); EOSINOPHILS 6.5 % (0-7); HEMATOCRIT 29.6 % (36.0-48.0); HEMOGLOBIN 9.6 g/dL (12-16); IMMATURE GRANULOCYTES 0.4 % (0-5); LYMPHOCYTES 18.1 % (15-50); MCH 29.4 pg (26.0-34.0); MCHC 32.4 g/dL (31.0-37.0); MCV 90.5 fL (80.0-100.0); MEAN PLATELET VOLUME 8.9 fL (7.4-10.4); MONOCYTES 8.1 % (2-11); PLATELET COUNT 449 10x3/uL (130-400); RBC 3.27 10x6/uL (4.00-5.40); RDW 15.2 % (11.5-14.5); WBC 5.7 10x3/uL (4.8-10.8)
[2016-09-12 14:16] LABS: C-REACTIVE PROTEIN 1.7 mg/dL (0.0-0.9)
[2016-09-12 15:12] LABS: ERYTHROCYTE SEDIMENTATION RATE 60 mm/hr (0-20)
== END | disposition home or self-care (01) ==
LOC: D.LABREF 12:36
PROVIDERS: Orthopaedic Surgery
DX: A49.02 Methicillin resistant Staphylococcus aureus infection, unspecified site (principal); Z79.2 Long term (current) use of antibiotics

== ENCOUNTER → 2016-09-20 11:23 | Outpatient (CLI) | payer BC ==
[2016-08-25 20:05] VITALS: BMI 21.3
[2016-09-20 12:34] LABS: HEMATOCRIT 37.2 % (36.0-48.0); HEMOGLOBIN 12.3 g/dL (12-16); MCH 30.4 pg (26.0-34.0); MCHC 33.1 g/dL (31.0-37.0); MCV 91.9 fL (80.0-100.0); MEAN PLATELET VOLUME 9.8 fL (7.4-10.4); PLATELET COUNT 450 10x3/uL (130-400); RBC 4.05 10x6/uL (4.00-5.40); RDW 16.2 % (11.5-14.5); WBC 6.1 10x3/uL (4.8-10.8)
[2016-09-20 12:51] LABS: C-REACTIVE PROTEIN 1.4 mg/dL (0.0-0.9); CALC OSMOLALITY 271 mosm/kg (275-300); CALCIUM 9.7 mg/dL (8.5-10.1); CARBON DIOXIDE 27.1 mmol/L (21.0-32.0); CHLORIDE - SERUM 100 mmol/L (98-107); CREATININE - SERUM 0.8 mg/dL (0.6-1.3); GLUCOSE 100 mg/dL (74-106); POTASSIUM - SERUM 4.4 mmol/L (3.5-5.1); SODIUM 137 mmol/L (136-145); UREA NITROGEN 7 mg/dL (7-18); eGFR NON AFRICAN AMERICAN 81 mL/min (90-120)
[2016-09-20 13:21] LABS: BASOPHILS 1 % (0-2); EOSINOPHILS 7 % (0-7); LYMPHOCYTES 29 % (15-50); MONOCYTES 12 % (2-11); NEUTROPHILS 49 % (40-80); PLATELET ESTIMATE INCREASED
[2016-09-20 13:39] LABS: ERYTHROCYTE SEDIMENTATION RATE 50 mm/hr (0-20)
== END | disposition home or self-care (01) ==
LOC: D.LABREF 11:23
PROVIDERS: Orthopaedic Surgery
DX: M00-M99 Diseases of the musculoskeletal system and connective tissue (principal); Z79.2 Long term (current) use of antibiotics

== ENCOUNTER → 2016-09-26 15:22 | Outpatient (CLI) | payer BC ==
[2016-08-25 20:05] VITALS: BMI 21.3
[2016-09-26 15:53] LABS: BASOPHILS 0.6 % (0-2); EOSINOPHILS 9.9 % (0-7); HEMATOCRIT 34.7 % (36.0-48.0); HEMOGLOBIN 11.4 g/dL (12-16); IMMATURE GRANULOCYTES 0.2 % (0-5); LYMPHOCYTES 22.2 % (15-50); MCH 30.2 pg (26.0-34.0); MCHC 32.9 g/dL (31.0-37.0); MCV 91.8 fL (80.0-100.0); MEAN PLATELET VOLUME 9.6 fL (7.4-10.4); MONOCYTES 7.7 % (2-11); NEUTROPHILS 59.4 % (40-80); PLATELET COUNT 414 10x3/uL (130-400); RBC 3.78 10x6/uL (4.00-5.40); RDW 16.4 % (11.5-14.5); WBC 6.3 10x3/uL (4.8-10.8)
[2016-09-26 15:57] LABS: C-REACTIVE PROTEIN 0.8 mg/dL (0.0-0.9)
[2016-09-26 16:57] LABS: ERYTHROCYTE SEDIMENTATION RATE 28 mm/hr (0-20)
== END | disposition home or self-care (01) ==
LOC: D.LABREF 15:22
PROVIDERS: Orthopaedic Surgery
DX: M00.221 Other streptococcal arthritis, right elbow (principal); M00-M99 Diseases of the musculoskeletal system and connective tissue; Z48.01 Encounter for change or removal of surgical wound dressing

== ENCOUNTER → 2016-10-03 16:18 | Outpatient (CLI) | payer BC ==
[2016-08-25 20:05] VITALS: BMI 21.3
[2016-10-03 16:57] LABS: BASOPHILS 0.2 % (0-2); EOSINOPHILS 3.2 % (0-7); HEMATOCRIT 35.5 % (36.0-48.0); HEMOGLOBIN 11.5 g/dL (12-16); IMMATURE GRANULOCYTES 0.2 % (0-5); LYMPHOCYTES 15.5 % (15-50); MCHC 32.4 g/dL (31.0-37.0); MCV 92.7 fL (80.0-100.0); MEAN PLATELET VOLUME 10.7 fL (7.4-10.4); MONOCYTES 5.8 % (2-11); NEUTROPHILS 75.1 % (40-80); PLATELET COUNT 350 10x3/uL (130-400); RBC 3.83 10x6/uL (4.00-5.40); RDW 16.6 % (11.5-14.5); WBC 11.8 10x3/uL (4.8-10.8)
[2016-10-03 17:41] LABS: C-REACTIVE PROTEIN 3.5 mg/dL (0.0-0.9)
[2016-10-03 18:07] LABS: ERYTHROCYTE SEDIMENTATION RATE 30 mm/hr (0-20)
== END | disposition home or self-care (01) ==
LOC: D.LABREF 16:18
PROVIDERS: Orthopaedic Surgery
DX: M00-M99 Diseases of the musculoskeletal system and connective tissue (principal); M00.221 Other streptococcal arthritis, right elbow; Z45.2 Encounter for adjustment and management of vascular access device; Z47.89 Encounter for other orthopedic aftercare

== ENCOUNTER → 2016-10-10 13:14 | Outpatient (CLI) | payer SELFPAY ==
[2016-08-25 20:05] VITALS: BMI 21.3
--- NOTE | ~2016-10-10 | OP ---
PATIENT NAME: JENNIFER PERERA MEDICAL RECORD: [id number] :[birth year] LOCATION:D.LAB ADMISSION DATE: SURGEON: AMAIRANI JOHNSON MD DATE OF OPERATION: 10/10/2016 PREOPERATIVE DIAGNOSIS: Septic arthritis right elbow. POSTOPERATIVE DIAGNOSIS: Septic arthritis right elbow. PROCEDURES: Repeat I&D of the right elbow - excisional debridement and lavage of the right elbow joint skin, subcutaneous tissue, portions of fat, fascia, muscle and bone. SURGEON: Amairani Johnson MD ANESTHESIA: General. INTRAOPERATIVE COMPLICATIONS: None. SUMMARY OF PATHOLOGIC FINDINGS: The patient's wound had cleared up substantially; however, she had still required further irrigation and debridement and placement of long-term IV antibiotic catheter. OPERATIVE SUMMARY IN DETAIL: After obtaining the appropriate preoperative orthopedic surgery consent as well as anesthetic consultation, evaluation and clearance, the patient was brought to the operating room and placed on the operating table in supine position. After adequate general laryngeal mask airway anesthesia was administered, the patient's right upper extremity was prepped and draped in a routine sterile fashion. The wound was debrided using scalpel curettage as well as a rongeur from all nonviable appearing soft tissue. It was taken back to a very good viable appearing tissue, which bled nicely. The wound was copiously irrigated with a bulb syringe. When it was felt that a good clean return was noted, the wound VAC was replaced, 125 mm with continuous suction on medium intensity. Having completed this, the patient was awakened and the patient was taken to recovery room in stable condition. All final needle and sponge counts were correct. TRANSINT:[id number] Voice Confirmation ID: [id number] DOCUMENT ID: [id number] AMAIRANI JOHNSON MD CC: [id number] DICTATION DATE: 10/10/16 1639 AIR TRAFFIC CONTROL MANAGER: 10/11/16 0000 DEP CLI 10/10/16 [id number] [place] [address]
[2016-10-10 13:44] LABS: BASOPHILS 0.5 % (0-2); EOSINOPHILS 4.6 % (0-7); HEMATOCRIT 36.8 % (36.0-48.0); HEMOGLOBIN 12.1 g/dL (12-16); IMMATURE GRANULOCYTES 0.3 % (0-5); LYMPHOCYTES 19.6 % (15-50); MCH 30.2 pg (26.0-34.0); MCHC 32.9 g/dL (31.0-37.0); MCV 91.8 fL (80.0-100.0); MEAN PLATELET VOLUME 9.8 fL (7.4-10.4); MONOCYTES 14.5 % (2-11); NEUTROPHILS 60.5 % (40-80); PLATELET COUNT 412 10x3/uL (130-400); RBC 4.01 10x6/uL (4.00-5.40); WBC 6.1 10x3/uL (4.8-10.8)
[2016-10-10 13:48] LABS: C-REACTIVE PROTEIN 1.7 mg/dL (0.0-0.9); CREATININE - SERUM 0.6 mg/dL (0.6-1.3)
[2016-10-10 14:46] LABS: ERYTHROCYTE SEDIMENTATION RATE 42 mm/hr (0-20)
== END | disposition home or self-care (01) ==
LOC: D.LABREF 13:14
PROVIDERS: Orthopaedic Surgery
DX: Z47.89 Encounter for other orthopedic aftercare (principal); M00-M99 Diseases of the musculoskeletal system and connective tissue; M00.221 Other streptococcal arthritis, right elbow; B95.5 Unspecified streptococcus as the cause of diseases classified elsewhere